=== PATIENT | male | born 1960 | race Caucasian/White ===

== ENCOUNTER 2021-07-27 14:13 | Emergency (ER) | payer OTHER ==
[2021-07-27 14:47] LABS: Absolute Lymphocytes (CBC) 1.5 K/uL (0.7-4.9); Hematocrit 30.8 % (39.6-49.0); Lymphocytes % 29.1 % (15.3-44.8); MPV 7.5 fL (7.6-11.3)
[2021-07-27 15:17] LABS: Platelet Estimate ADEQ
[2021-07-27 15:18] LABS: Blood Morphology Comment NOT SEEN (NOT SEEN)
[2021-07-27 15:19] LABS: Albumin 3.2 g/dL (3.4-5.0); Bilirubin Direct 0.1 mg/dL (0-0.2); Bilirubin Total 0.3 mg/dL (0.2-1.0); Potassium 4.8 mmol/L (3.5-5.1); Protein, Total 6.7 g/dL (6.4-8.2)
--- NOTE | 2021-07-27 16:05 | RAD REPORT ---
EXAM DESCRIPTION: CT - Abdomen Pelvis W Contrast - 07/27/2021 3:48 pm CLINICAL HISTORY: ABD PAIN, left lower quadrant nausea constipation and history of colon cancer with colon resection COMPARISON: No comparisons TECHNIQUE: Biphasic, helical CT imaging of the abdomen and pelvis was performed following 100 ml non -ionic IV contrast. No oral contrast administered. All CT scans are performed using dose optimization technique as appropriate and may include automated exposure control or mA/KV adjustment according to patient size. FINDINGS: No suspicious findings in the lung bases. Liver is normal in size. No nodularity or enhancing lesions. There are several thin-walled homogeneou s cystic masses in the liver largest at 2.8 cm posterior mid right lobe. No enhancing characteristics . These are believed to be incidental hepatic cysts. A small 10 mm cyst is present in the superior as pect of the spleen. No pancreatic abnormality. Gallbladder and biliary tree are also without suspicio us finding. Symmetric renal function is seen with no hydronephrosis or suspicious renal mass. No pyelonephritis o r acute parenchymal process. Mostly contracted urinary bladder shows no suspicious findings. Numerous pelvic floor phleboliths are present. No adrenal abnormalities. Gastric size is normal. Arreola the gastric antrum are prominent probably peristalsis artifact. No anastasia s evidence for mass or ulceration. Significant gastric antrum finding is doubtful. Provided history i ndicates left lower quadrant pain symptoms. No small bowel acute finding seen. Right hemicolectomy ch anges are present. The anastomosis in the right mid abdomen shows no unexpected finding. There is mod erate stool volume present filling but not distending the left side colon. No colitis, diverticulitis or other acute colon process identifiable. No free air, free fluid or inflammatory stranding. No mass or bulky lymphadenopathy. Approximately 4 cm superior to the umbilicus there is a small fat only ventral hernia approximately 2.5 cm in diam eter with a 1.5 centimeter neck. No congestion or edema of the herniated fat. Right inguinal hernia s urgical changes are noted. No suspicious bony findings. IMPRESSION: Contrast enhanced CT abdomen and pelvis showing no acute or emergent finding. No abnorm ality seen to explain the provided history of left lower abdominal pain. Nonacute findings are detailed in the body of the report.
--- NOTE | 2021-07-27 16:16 | EDPHYS ---
Physician Documentation [facility] Name: Hans Camacho Age: 61 yrs Sex: Male : 1960 Arrival Date: 07/27/2021 Time: 14:34 Bed 7 Private MD: ED Physician Joel Fitzgerald HPI: 07/27 14:49 This 61 yrs old Male presents to ER via Unassigned with complaints of Abdominal Pain. ma2 14:49 Associated signs and symptoms: Pertinent negatives: anorexia, diarrhea, fever, ma2 headache, vomiting. 61-year-old male, inmate here with abdominal pain lower abdominal, constant 2 months got worse over the last 1 week, he also has constipation, no prior surgeries. Historical: - Allergies: 15:10 No Known Allergies; ph - Home Meds: 15:10 Lisinopril Oral [Active]; amlodipine oral [Active]; Hydrochlorothiazide Oral [Active]; ph - PMHx: 15:10 Hypertensive disorder; ph 15:11 colon cancer; ph - PSHx: 15:11 bowel resection; ph - Immunization history:: Adult Immunizations not up to date. - Social history:: Patient/guardian denies using alcohol, street drugs, The patient lives with family, Smoking status: Patient denies any tobacco usage or history of. - Family history:: not pertinent. ROS: 14:49 Constitutional: Negative for fever, chills, and weight loss. ma2 14:49 All other systems are negative. Exam: 14:49 Constitutional: This is a well developed, well nourished patient who is awake, alert, ma2 and in no acute distress. ENT: Nares patent. No nasal discharge, no septal abnormalities noted. Tympanic membranes are normal and external auditory canals are clear. Oropharynx with no redness, swelling, or masses, exudates, or evidence of obstruction, uvula midline. Mucous membranes moist. Neck: Trachea midline, no thyromegaly or masses palpated, and no cervical lymphadenopathy. Supple, full range of motion without nuchal rigidity, or vertebral point tenderness. No Meningismus. Chest/axilla: Normal chest wall appearance and motion. Nontender with no deformity. No lesions are appreciated. Cardiovascular: Regular rate and rhythm with a normal S1 and S2. No gallops, murmurs, or rubs. Normal PMI, no JVD. No pulse deficits. Respiratory: Lungs have equal breath sounds bilaterally, clear to auscultation and percussion. No rales, rhonchi or wheezes noted. No increased work of breathing, no retractions or nasal flaring. Abdomen/GI: Soft, non-tender, with normal bowel sounds. No distension or tympany. No guarding or rebound. No evidence of tenderness throughout. Back: No spinal tenderness. No costovertebral tenderness. Full range of motion. MS/ Extremity: Pulses equal, no cyanosis. Neurovascular intact. Full, normal range of motion. Neuro: Awake and alert, GCS 15, oriented to person, place, time, and situation. Cranial nerves II-XII grossly intact. Motor strength 5/5 in all extremities. Sensory grossly intact. Cerebellar exam normal. Normal gait. Vital Signs: 14:59 BP 110 / 72; Pulse 72; Resp 18; Pulse Ox 99% on R/A; ph 16:15 BP 122 / 76; Pulse 71; Resp 18; Pulse Ox 99% on R/A; ph 17:33 BP 113 / 73; Pulse 67; Resp 16; Temp 97.4; Pulse Ox 99% on R/A; ph MDM: 14:38 Patient medically screened. ma2 16:14 Differential diagnosis: diverticulitis, gastritis, gastroesophageal reflux disease, ma2 pancreatitis. Data reviewed: vital signs, nurses notes, EMS record. Counseling: I had a detailed discussion with the patient and/or guardian regarding: the historical points, exam findings, and any diagnostic results supporting the discharge/admit diagnosis, the presence of at least one elevated blood pressure reading (>120/80) during this emergency department visit, the need for outpatient follow up. Response to treatment: the patient's symptoms have markedly improved after treatment. 07/27 14:36 Order name: Basic Metabolic Panel; Complete Time: 15:36 ph 07/27 14:36 Order name: CBC with Diff; Complete Time: 15:36 ph 07/27 14:36 Order name: Hepatic Function; Complete Time: 15:36 ph 07/27 14:36 Order name: Lipase; Complete Time: 15:36 ph 07/27 14:49 Order name: CT Abd/Pelvis - IV Contrast Only; Complete Time: 16:14 ma2 07/27 15:05 Order name: Manual Differential; Complete Time: 15:36 EDMS 07/27 14:36 Order name: IV Saline Lock; Complete Time: 14:38 ph 07/27 14:36 Order name: Labs collected and sent; Complete Time: 14:38 ph Administered Medications: 16:48 Drug: Zofran (Ondansetron) 4 mg Route: IVP; Site: right antecubital; ph 17:36 Follow up: Response: No adverse reaction ph 16:51 Drug: morphine 4 mg Route: IVP; Site: right antecubital; ph 17:35 Follow up: Response: No adverse reaction; Pain is decreased ph Disposition Summary: 07/27/21 16:15 Discharge Ordered Location: Home ma2 Condition: Stable ma2 Diagnosis - Generalized abdominal tenderness ma2 Followup: ma2 - With: Hernando Spicer MD - When: Tomorrow - Reason: If symptoms return, Continuance of care Discharge Instructions: - Discharge Summary Sheet ma2 - Abdominal Pain, Adult ma2 Forms: - Medication Reconciliation Form ma2 - Thank You Letter ma2 - Antibiotic Education ma2 - Prescription Opioid Use ma2 Signatures: Dispatcher [employer] Denise Davis, RN RN ph Joel Fitzgerald MD MD ma2
--- NOTE | 2021-07-27 16:16 | ER ---
Nurse's Notes [facility] Name: Hans Camacho Age: 61 yrs Sex: Male : 1960 Arrival Date: 07/27/2021 Time: 14:34 Bed 7 Private MD: Diagnosis: Generalized abdominal tenderness Presentation: 07/27 14:45 Chief complaint: Patient states: Lower abdominal pain, that is constant 4/10, worse on ph left, states that pain becomes more intense when eating, denies N/V/D, reports hx of colon cancer w/ bowel resection (2008). Coronavirus screen: At this time, the client does not indicate any symptoms associated with coronavirus-19. Ebola Screen: No symptoms or risks identified at this time. Initial Sepsis Screen: Does the patient meet any 2 criteria? No. Patient's initial sepsis screen is negative. Does the patient have a suspected source of infection? No. Patient's initial sepsis screen is negative. Risk Assessment: Do you want to hurt yourself or someone else? Patient reports no desire to harm self or others. Onset of symptoms was July 27, 2021. 14:45 Method Of Arrival: Law Enforcement: [place] [employer] ph 14:45 Acuity: LISA 3 ph Historical: - Allergies: 15:10 No Known Allergies; ph - Home Meds: 15:10 Lisinopril Oral [Active]; amlodipine oral [Active]; Hydrochlorothiazide Oral [Active]; ph - PMHx: 15:10 Hypertensive disorder; ph 15:11 colon cancer; ph - PSHx: 15:11 bowel resection; ph - Immunization history:: Adult Immunizations not up to date. - Social history:: Patient/guardian denies using alcohol, street drugs, The patient lives with family, Smoking status: Patient denies any tobacco usage or history of. - Family history:: not pertinent. Screenin:12 Abuse screen: Denies threats or abuse. Denies injuries from another. Nutritional ph screening: No deficits noted. Tuberculosis screening: No symptoms or risk factors identified. Fall Risk None identified. Assessment: 15:13 General: Appears in no apparent distress. comfortable, well groomed, Behavior is calm, ph cooperative, appropriate for age. Pain: Complains of pain in left lower quadrant. Neuro: Level of Consciousness is awake, alert, obeys commands, Oriented to person, place, time, situation. Cardiovascular: Capillary refill < 3 seconds in bilateral fingers Patient's skin is warm and dry. Respiratory: Airway is patent Respiratory effort is even, unlabored. GI: Abdomen is non-distended, Reports lower abdominal pain, bloating. Derm: Skin is intact, is healthy with good turgor, Skin is pink, warm \T\ dry. 17:33 Reassessment: Patient appears in no apparent distress at this time. Patient and/or ph family updated on plan of care and expected duration. Pain level reassessed. Patient is alert, oriented x 3, equal unlabored respirations, skin warm/dry/pink. Pt d/c, has follow up w/ GI next month. Vital Signs: 14:59 BP 110 / 72; Pulse 72; Resp 18; Pulse Ox 99% on R/A; ph 16:15 BP 122 / 76; Pulse 71; Resp 18; Pulse Ox 99% on R/A; ph 17:33 BP 113 / 73; Pulse 67; Resp 16; Temp 97.4; Pulse Ox 99% on R/A; ph ED Course: 14:34 Patient arrived in ED. vg1 14:36 Denise Mahajan, RN is Primary Nurse. ph 14:38 Joel Fitzgerald MD is Attending Physician. ma2 14:45 Inserted saline lock: 20 gauge in right antecubital area, using aseptic technique. ph Blood collected. 15:10 Triage completed. ph 15:10 Arm band placed on Patient placed in an exam room, on a stretcher. ph 15:12 Patient has correct armband on for positive identification. Bed in low position. Call ph light in reach. Side rails up X 1. Pulse ox on. NIBP on. Door closed. Noise minimized. 15:48 CT Abd/Pelvis - IV Contrast Only In Process Unspecified. EDMS 16:15 Hernando Spicer MD is Referral Physician. ma2 17:34 No provider procedures requiring assistance completed. IV discontinued, intact, ph bleeding controlled, No redness/swelling at site. Pressure dressing applied. Administered Medications: 16:48 Drug: Zofran (Ondansetron) 4 mg Route: IVP; Site: right antecubital; ph 17:36 Follow up: Response: No adverse reaction ph 16:51 Drug: morphine 4 mg Route: IVP; Site: right antecubital; ph 17:35 Follow up: Response: No adverse reaction; Pain is decreased ph Outcome: 16:15 Discharge ordered by MD. rubin 17:35 Discharged to Law Enforcement ph 17:35 Condition: good 17:35 Discharge instructions given to patient, Instructed on discharge instructions, follow up and referral plans. Demonstrated understanding of instructions, follow-up care. 17:36 Patient left the ED. ph Signatures: Dispatcher [employer] Denise Davis RN RN Joel Fitzgerald MD MD ma2 Carine Chong RN RN vg1
[2021-07-27] MEDS ORDERED: MORPHINE 4 MG/ML SYR ONE (16:44)
[2021-07-27] MEDS ORDERED: ONDANSETRON 4 MG/2 ML VIAL ONE (16:44)
[2021-07-27 18:13] VITALS: O2SAT 99
[2021-07-27 18:15] VITALS: BP 113/73; TEMP 97.4
== END 2021-07-27 17:36 | disposition home or self-care (01) ==
LOC: ER 14:13
DX: R10.817 Generalized abdominal tenderness (principal); I10 Essential (primary) hypertension; Z85.038 Personal history of other malignant neoplasm of large intestine
CPT/HCPCS: 85025; 80048; 36415; 80076; 83690; 74177; Q9967; J2405; 96374; 96375; 99284